=== PATIENT | female | born 1970 | race Caucasian/White ===

== ENCOUNTER 2024-11-20 11:04 | Outpatient (AMB) | payer MEDICAID, SELFPAY ==
--- OUTSIDE RECORDS SUMMARY | 2024-11-20 11:11 | XMS_ITS | Clinical Summary ---
Author Organization [facility] Address [address] [place] [address] Care Team Providers Care Surg Nurse Name Role Phone Jesusita Mcgarry Primary Care Provider Social History Tobacco Use Types Packs/Day Years Used Date Smoking Tobacco: Never Assessed Comments Unknown Sex and Gender Information Value Date Recorded Sex Assigned at Not on file Legal Sex Female 1:26 AM EST Gender Identity Not on file Sexual Orientation Not on file Plan of Treatment Not on file Care Teams Surg Nurse Relationship Specialty Start Date End Date Jesusita Mcgarry [address] [place] [address] [address] [address] PCP - General 03/01/14
--- OUTSIDE RECORDS SUMMARY | 2024-11-20 11:11 | XMS_ITS | Patient Health Record ---
Author Organization [facility] Address [address] [facility] 4TH [place] [address] Care Team Providers Care Lav Crewman Name Role Phone Anette Lopes Primary Care Provider Jeff Newman M.D, M.P.H, Tamara Unavailable Allergies No Known Allergies Reason For Referral No Information Medications Medication SIG (Take, Route, Fr equency, Duration) Notes Start Date End Date Status Zetia Active KlonoPIN 1 MG 1 tablet Orally Once a day Active Rexulti 1 MG 1 tablet Orally Once a day Active DULoxetine HCl Activ e Social History Tobacco Use: Social History Observation Description Date Details (start date - stop date) Light tobacco s moker NA - NA Smoking: Question Answer Notes Are you a : light tobacco smoker Alcohol Screen Question Answer Notes Did you have a drink containing alcohol in the p ast year? No Vital Signs Blood pressure diastolic 85 mm Hg 06/18/2024 Height 65 in 06/18/2024 Blood pressure systolic 130 mm Hg 06/18/2024 Weight 240 lbs 06/18/2024 BMI 39.93 kg/m2 06/18/2024 Encounters Encounter Location Date Provider Diagnosis [facility] [address] [facility] [address] [place] [address] 06/18/2024 Tamara Du Nasal congestion R09.81 and Acquired nasal septal defect J34.89 Assessments Encounter Date Diagnosis (ICD Code) Assessment Notes Treatment Notes Treatment Clinical Notes Section Notes 06/18/2024 Nasal congestion (ICD-10 - R09.81) unclear cause, patient has a widely patent nasal airway bilaterally without mucosal edema, turbiante hypertrophy or septal deviation. She does have a very posterior septal perforation which is likely iatrogenic but in its location, should not cause any symptoms. Empty nose syndrome is a possiblity but unlikely given that she does not appear to have had extensive surgery on the left side. I do not feel that repairing the septal perforation would be of benefit to patient. We discussed conservative strategies including nasal saline. She can f/u prn. 06/18/2024 Acquired nasal septal defect (ICD-10 - J34.89) Plan Of Treatment No Information Insurance Providers Payer Name Payer Address Payer Phone Subscriber Number Group Number Insured Name Patient Relationship to Insured Coverage Start Date Coverage End Date [facility] [address] [place] [id number] Frieda Dsouza Self - patient is the insured [facility] [address] [place] [address] [id number] Frieda Dsouza Self - patient is the insured Medical (General) History Medical History History ICD Code Patient Medical History Continued: High blood pressure,Sleep apnea cancer: Other Cancer, other: Bladder Surgical History: Removed tonsils or Amanda noids,Sinus surgery,Spine surgery
--- OUTSIDE RECORDS SUMMARY | 2024-11-20 11:13 | XMS_ITS | Clinical Summary ---
Author Organization [facility] Address [address] [facility] [address] [place] [address] Phone Care Team Providers Care Management Liaison Name Role Phone Anette Lopes AUTOMOBILE OR TRUCK RENTAL DISPATCHER Primary Care Provider [phone]- [phone] Allergies Active Allergy Reactions Criticality Noted Date Comments Fluorouracil-Adhesive Bandage 2022 Latex Rash Low 12/11/2022 Medications No known medications Active Problems No known active problems Immunizations Immunization Administration Dates Next Due COVID-19 (Pre-02/11) Moderna Vaccine, mRNA, PF 03/09/2021,08/13/2020,07/16/2020 Influenza Quadrivalent Preservative Free IM 01/20 Influenza, Unspecified Formulation 01/30/2022 Social History Tobacco Use Types Packs/Day Years Used Date Smoking Tobacco: Never Assessed Education Answer Date Recorded Are you interested in more education? Not on cesar e 08/18/2022 Are you concerned about learning? Not on file 08/18/2022 No 08/18/2022 No 08/18/2022 Digital Access Answer Date Recorded No 09/16/2022 No 09/16/2022 No 09/16/2022 Reliable internet access at home? Not on file 09/16/2022 Device with a working camera? Not on file Intimate Partner Violence Answer Date R ecorded Are you denied basic needs s uch as food, clothing, or medical care? No 12/11/2022 In the past 12 months have y ou been in a relationship with a person who hurts, threatens, or tries to control you? No 12/11/2022 Are you denied basic needs s uch as food, clothing, or medical care? No 12/11/2022 In the past 12 months have y ou been in a relationship with a person who hurts, threatens, or tries to control you? No 12/11/2022 Comments Unknown Sex and Gender Information Value Date Recorded Sex Assigned at Female 12/11/2022 9:32 AM EDT Legal Sex Female 5:29 PM EST Gender Identity Female 12/11/2022 9:32 AM EDT Sexual Orientation Choose not to disclose 2022 9:32 AM EDT Last Filed Vital Signs Vital Sign Reading Time Taken Comments Blood Pressure 122/73 12/11/2022 2:20 PM EDT Pulse 90 12/11/2022 2:20 PM EDT Temperature 36.9 C (98.4 F) 12/11/2022 2:20 PM EDT Respiratory Rate 18 12/11/2022 2:20 PM EDT Oxygen Saturation 100% 12/11/2022 2:20 PM EDT Inhaled Oxygen Concentration - - Weight 102.1 kg (225 lb) 12/11/2022 9:32 AM EDT Height 165.1 cm (5' 5 ) 12/11/2022 9:32 AM EDT Body Mass Index 37.44 12/11/2022 9:32 AM EDT Plan of Treatment Health Maintenance Due Date Last Done Comments LIPID PANEL 1970 DEPRESSION SCREENING 1982 SMOKING Hx and SMOKELESS TOBACCO SCREENING 1983 HEPATITIS C SCREENING 1988 HIV ONE-TIME SCREENING (18-65 YEARS) 1988 PAP SMEAR 1991 SCREENING FOR DIABETES 2005 MAMMOGRAM 2010 COLOGUARD 2015 COLONOSCOPY 2015 COLORECTAL CANCER SCREENING 2015 FIT TEST 2015 FOBT 2015 SIGMOIDOSCOPY 2015 VIRTUAL COLONOSCOPY 2015 PNEUMOCOCCAL VACCINES (50+ years) (1 of 1 - PCV) 2020 ZOSTER VACCINES (1 of 2) 2020 COVID-19 VACCINE ( - season) 2023 03/09/2021, 08/13/2020, 07/16/2020, Additional history exists Adult Td,Tdap Booster 11/17/2027 11/16/2017 HEPATITIS A VACCINES Aged Out No long er eligible based on patient's age to complete this topic HIB VACCINES Aged Out No longer eligi ble based on patient's age to complete this topic MENINGOCOCCAL VACCINES (ACWY) Aged Out No longer eligible based on patient's age to complete this topic MENINGOCOCCAL VACCINES (B) Aged Out N o longer eligible based on patient's age to complete this topic Medical Devices Not on file Insurance [facility] MEDICARE A [facility] EMPL[employer]YEES [place] [facility] [place] [facility] EMPL[facility]YEES FAMILY [facility] MEDICARE A [facility] EMPLOYEES FAMILY [facility] MEDICARE A [facility] EMPL[employer]ES [place] MED[place] A [place] MED[place] A [facility] EMPLOYEES FAMILY Advance Directives For more information, please contact: [phone] (9AM - 5PM [facility], Saturday-Saturday) Documents on File Type Date Recorded Patient Tailor Fitter Expl anation Advance Directive - Non Epic LMR 03/29/2006 12:00 AM Care Teams Management Liaison Relationship Specialty Start Date End Date Anette Lopes NP [address] [place] [address] PCP - General Nurse Practitioner 08/15/22 Additional Source Comments The information contained in this document represents components of the legal health record. It is not the complete legal health record.[facility]
[2024-11-20 11:36] VITALS: BP 121/78; PULSE 88; RESP 18; O2SAT 98; BMI 34.9
--- NOTE | 2024-11-20 11:36 | A.OFFVIS_ITS ---
Vital Signs 11/20/24 11:36 Height 5 ft 5 in Weight 210 lb BMI 34.9 BP 121/78 Blood Pressure Location Lt brachial Position Sitting Respiration 18 Pulse 88 Pulse Oximetry (%) 98 Oxygen Delivery Method Room Air Intake Visit Reasons: VERTEBROGENIC LOW BACK PAIN Writer Editor Required: No Allergies Opioids - Morphine Analogues Allergy (Unknown, Unverified 11/20/24 11:34) Unknown HPI HPI VERTEBROGENIC LOW BACK PAIN: Details: History of Present Illness The patient is a 54-year-old female presenting with management of chronic low back pain. The low back pain has been present for 15 years and radiates across her lower back. She underwent surgery at L4-5 in 2010, performed by Dr. Marion, but continues to experience chronic numbness in her toes. The patient has previously responded well to injections, although recent attempts have not been effective. A spinal cord stimulator was placed but did not provide significant improvement, and she experienced discomfort from the battery placement. Recent MRI findings revealed partial sacralization of L5 and modic changes underpinning vertebrogenic pain exacerbated by certain activities. Her pain has been refractory to conservative management, including epidural steroid injections, home exercise programs, and medications such as meloxicam and pregabalin. She was recommended an intrracept procedure at L3, L4, and L5, with an additional target at S1 due to vertebral degeneration but this could not be completed due to scheduling difficulties. During her second , the patient experienced pelvic instability, with her pubic bone splitting two inches, causing significant discomfort. Pain Description - Onset: 15 years ago - Quality: Radiates across lower back - Exacerbating factors: Certain activities - Previous interventions: Surgery at L4-5, spinal cord stimulator, CHACHA/facet injections - Current status: Refractory to conservative management Physical Exam - Appears afebrile. - Alert and oriented. - Mood and affect appropriate. - Follows and participates in conversation appropriately. - Respiratory effort is unlabored. 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 Social phobia PRANAY (obstructive sleep apnea) Hiatal hernia GERD (gastroesophageal reflux disease) Fibromyalgia Endometriosis BPV (benign positional vertigo) Benzodiazepine overdose Adrenal adenoma Anxiety Depression Memory loss Overweight Vertebrogenic low back pain Surgical History (Updated 11/20/24 @ 12:01 by Jaleesa Rodriguez) Hx of breast implants, bilateral History of tonsillectomy Physical Exam Vital Signs: Last Vital Signs Pulse 88 11/20/24 11:36 Resp 18 11/20/24 11:36 BP 121/78 11/20/24 11:36 Pulse Ox 98 11/20/24 11:36 Oxygen Delivery Method Room Air 11/20/24 11:36 BMI result Body Mass Index 34.9 Assessment & Plan Assessment & Plan (1) Vertebrogenic low back pain: Code(s): M54.51 - Vertebrogenic low back pain Category: Medical Plan Plan - Recommend Intracept/BVN ablation procedure at L3, L4, L5, and S1 due to vertebral degeneration and pain refractory to conservative management. - Consideration of facet joint degeneration and potential need for future interventions if pain persists post-procedure. - Monitor for any complications related to previous epidural injections and spinal procedures. Patient was informed and verbally consented to the use of an ambient scribe for clinic note documentation during this visit. Discussion Notes I discussed the BVNA procedure with the patient, explaining the rationale for targeting L3, L4, L5, and S1 due to vertebral degeneration and refractory pain. We reviewed the potential risks and benefits, including the possibility of addressing facet joint degeneration in the future if necessary. The patient was informed about the need to monitor for any complications related to previous spinal procedures. Patient Instructions - Follow up with surgical services asst to arrange the intraset procedure. - Monitor for any new or worsening symptoms and report them immediately. - Continue current pain management regimen until the procedure is completed. Coding Level of Care Code New Pt Level 4 (44216) Diagnoses Vertebrogenic low back pain M54.51
== END 2024-11-20 12:20 | disposition home or self-care (01) ==
LOC: HO.PMC 11:05
PROVIDERS: PCP Nurse Practitioner Adult Health; Visit Provider Internal Medicine
DX: M54.51 Vertebrogenic low back pain (principal)
CPT/HCPCS: 99204

== ENCOUNTER → 2024-11-20 11:04 | Outpatient (BNVA) | payer MEDICAID, SELFPAY | PROVIDERS: PCP Nurse Practitioner Adult Health; Visit Provider Internal Medicine | DX: M54.51 Vertebrogenic low back pain (principal); G89.29 Other chronic pain | CPT/HCPCS: 99202 ==

== ENCOUNTER 2025-01-06 10:08 | Day surgery (SDC) | payer OTHER, MEDICAID, SELFPAY ==
--- OUTSIDE RECORDS SUMMARY | 2024-12-03 13:14 | XMS_ITS | Clinical Summary ---
Author Organization [facility] Address [address] [place] [address] Care Team Providers Care Feather Duster Winder Name Role Phone Jesusita Mcgarry Primary Care Provider Social History Tobacco Use Types Packs/Day Years Used Date Smoking Tobacco: Never Assessed Comments Unknown Sex and Gender Information Value Date Recorded Sex Assigned at Not on file Legal Sex Female 1:26 AM EST Gender Identity Not on file Sexual Orientation Not on file Plan of Treatment Not on file Care Teams Feather Duster Winder Relationship Specialty Start Date End Date Jesusita Mcgarry [address] [place] [address] [address] [address] PCP - General 03/01/14
--- OUTSIDE RECORDS SUMMARY | 2024-12-03 13:14 | XMS_ITS | Clinical Summary ---
Author Organization [facility] Address [address] [facility] [address] [place] [address] Phone Care Team Providers Care Endband Sizer Name Role Phone Anette Lopes ESOL TEACHER Primary Care Provider [phone]- [phone] Allergies Active Allergy Reactions Criticality Noted Date [...] topic Medical Devices Not on file Insurance [facility] MEDICARE A [facility] EMPLOYEES [place] MEDIC[place] A [facility] [place] [facility] FAM[facility] MEDICARE A [facility] EM[employer]ES [place] MED[place] [facility] EMPLO[employer]ES FAMILY Advance Directives For more information, please contact: [phone] (9AM - 5PM [facility], Saturday-Saturday) Documents on File Type Date Recorded Patient Lead Sewage Plant Operator Expl anation Advance Directive - Non Epic LMR 03/29/2006 12:00 AM Care Teams Endband Sizer Relationship Specialty Start Date End Date Anette Lopes NP [address] [place] [address] PCP - General Nurse Practitioner 08/15/22 Additional Source Comments The information contained in this document represents components of the legal health record. It is not the complete legal health record.[facility]
--- OUTSIDE RECORDS SUMMARY | 2024-12-03 13:14 | XMS_ITS | Patient Health Record ---
Author Organization [facility] Address [address] [facility] 4TH [place] [address] Care Team Providers Care Bathhouse Keeper Name Role Phone Anette Lopes Primary Care [...] Diagnosis [facility] [address] [facility] [address] [place] [address] 06/18/2024 Tamara Du Nasal congestion R09.81 and [...] Insured Coverage Start Date Coverage End Date [facility] [address] [place] [phone] [id number] Frieda Dsouza Self - patient is the insured [facility] [address] [place] [address] [id number] Frieda Dsouza Self - patient is the insured Medical (General) History Medical History History ICD Code Patient Medical History Continued: High blood pressure,Sleep apnea cancer: Other Cancer, other: Bladder Surgical History: Removed tonsils or Amanda noids,Sinus surgery,Spine surgery
--- NOTE | 2024-12-22 10:45 | HO.ANESPROP2 ---
Documented by User: Shi Leach NP 12/29/24 10:41 HPI - Anesthesia Eval Consult details Narrative: 54yo F for L3,L4 L5 and S1 Basivertebral Nerve Ablation (Intracept RFA), 01/06/25 Anesthesia Pre-Procedure Meds Is the patient on any of the following meds?: GLP1/DPP4 PMFSH Active Problems Active Problems: All Active Problems Benzodiazepine overdose (Acute) Social phobia (Acute) PRANAY (obstructive sleep apnea) (Acute) Hiatal hernia (Acute) GERD (gastroesophageal reflux disease) (Acute) Fibromyalgia (Acute) Endometriosis (Acute) BPV (benign positional vertigo) (Acute) Adrenal adenoma (Acute) Anxiety (Acute) Depression (Acute) Memory loss (Acute) Overweight (Acute) Vertebrogenic low back pain (Acute) Past Medical History Medical History (Updated 11/20/24 @ 12:01 by Jaleesa Rodriguez) FH: cholecystectomy Spinal cord stimulator status 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 Social phobia PRANAY (obstructive sleep apnea) Hiatal hernia GERD (gastroesophageal reflux disease) Fibromyalgia Endometriosis BPV (benign positional vertigo) Benzodiazepine overdose Adrenal adenoma Anxiety Depression Memory loss Overweight Vertebrogenic low back pain Surgical History Surgical History (Updated 11/20/24 @ 12:01 by Jaleesa Rodriguez) Hx of breast implants, bilateral History of tonsillectomy Social History Social History Are you a primary ostomy care nurse to a significant other at home: No Do you presently have visiting nurse or other home services: No Patient Tobacco Use Status: Current everyday Tobacco user Tobacco use type: Smokeless Tobacco Use of substances other than those prescribed or required for medical reasons: No Have you been hit, kicked, punched, or otherwise hurt by someone within the past year? If so, by whom?: No Are you DNR?: No Advance Directives: No Advance Directives Information Provided: Yes Patient : No : No Poor oral hygiene: No Meds Allergies Allergy/AdvReac Type Severity Reaction Status Date / Time Opioids - Morphine Analogues Allergy Unknown Unknown Verified 01/06/25 10:54 Home Medications ?Medication ?Instructions ?Recorded ?Confirmed ?Last Taken ?Type brexpiprazole 1 mg tablet (Rexulti) 1 mg PO DAILY 11/20/24 01/06/25 Unknown History clonazepam 1 mg tablet (Klonopin) 1 mg PO BEDTIME 11/20/24 01/06/25 Unknown History duloxetine 30 mg capsule,delayed 90 mg PO DAILY 11/20/24 01/06/25 Unknown History release (Cymbalta) semaglutide (weight loss) 2.4 mg subcut 12/22/24 12/22/24 12/24/24 History mg/0.75 mL subcutaneous pen injector (Wegovy) Exam Pertinent Lab Results Pertinent Lab Results: Assessment and Plan Assessment Anesthesia Assessment: Chart Reviewed Documented by User: Lakeshia Ferguson MD 01/06/25 11:44 PMFSH Past Medical History Medical History (Updated 11/20/24 @ 12:01 by Jaleesa Rodriguez) FH: cholecystectomy Spinal cord stimulator status 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 Social phobia PRANAY (obstructive sleep apnea) Hiatal hernia GERD (gastroesophageal reflux disease) Fibromyalgia Endometriosis BPV (benign positional vertigo) Benzodiazepine overdose Adrenal adenoma Anxiety Depression Memory loss Overweight Vertebrogenic low back pain Family History Family history of problems with anesthesia: No Surgical History Surgical History (Updated 11/20/24 @ 12:01 by Jaleesa Rodriguez) Hx of breast implants, bilateral History of tonsillectomy History of Problems with Anesthesia: No Social History Social History Are you a primary ostomy care nurse to a significant other at home: No Do you presently have visiting nurse or other home services: No Patient Tobacco Use Status: Current everyday Tobacco user Tobacco use type: Smokeless Tobacco Use of substances other than those prescribed or required for medical reasons: No Have you been hit, kicked, punched, or otherwise hurt by someone within the past year? If so, by whom?: No Are you DNR?: No Advance Directives: No Advance Directives Information Provided: Yes Patient : No : No Poor oral hygiene: No Meds Allergies Allergy/AdvReac Type Severity Reaction Status Date / Time Opioids - Morphine Analogues Allergy Unknown Unknown Verified 01/06/25 10:54 Home Medications ?Medication ?Instructions ?Recorded ?Confirmed ?Last Taken ?Type brexpiprazole 1 mg tablet (Rexulti) 1 mg PO DAILY 11/20/24 01/06/25 Unknown History clonazepam 1 mg tablet (Klonopin) 1 mg PO BEDTIME 11/20/24 01/06/25 Unknown History duloxetine 30 mg capsule,delayed 90 mg PO DAILY 11/20/24 01/06/25 Unknown History release (Cymbalta) semaglutide (weight loss) 2.4 mg subcut 12/22/24 12/22/24 12/24/24 History mg/0.75 mL subcutaneous pen injector (Wegovy) Exam Airway Mallampati Class: II (perm bridge lateral right) TM Dist: >3cm Neck ROM: Full Heart: rrr Lungs: cta Assessment and Plan Assessment Anesthesia Assessment: Anesthesia Plan Discussed Final Anesthetic Review Family History of Problems with Anesthesia: No History of Problems with Anesthesia: No NPO: Yes ASA Class: III Final Preanesthetic Review: No Changes in Pt Med Stat, Meds/Allgs Chart Reviewed and Consent Obtained/Reviewed Patient Risk: Low Procedure Risk: Intermediate Anesthetic Plan Anesthetic Plan: MAC: Disposition: Standard PACU
[2025-01-04 08:45] VITALS: BMI 34.9
[2025-01-06] VITALS (15 sets, daily range): BP systolic 128–180; BP diastolic 59–89; PULSE 82–102; RESP 14–19; TEMP 36.7–36.8; O2SAT 93–97; BMI 40.4
--- NOTE | ~2025-01-06 | FL_ITS ---
EXAMINATION: FL GUIDANCE ONLY HISTORY: L3-S1 RFA INTRACEPT COMPARISON: None available. TECHNIQUE: Fluoroscopy time: 2 minutes, 7.3 seconds. Cumulative Dose: 169.08 mGy. DAP: 25.703 mGym2 Images: 7. FINDINGS: Endoscopic spot films of the lumbar spine demonstrate electrodes in place in the sacrum and in the L4 and L3 vertebral bodies. FL/FL guidance in OR IMPRESSION: Fluoroscopy during procedure. Please see procedure report for additional information. Electronically signed by: Carlos Manuel Felix MD 01/06/2025 02:39 PM EDT
[2025-01-06] MEDS: Lactated Ringers 1,000 ML 100 ML IVCONT (11:28)
--- NOTE | 2025-01-06 12:08 | MHC.SHP ---
Pre-Procedural Eval Section A - 24 Hr Update-Section A only Date of Service: 01/06/25 The patient is an INPATIENT: No Changes since office visit: Yes Patient answered all questions The patient has been examined within 24 hours of the surgical procedure. The History & Physical has been completed within 30 days and I have reviewed it.: No Section B - Complete if H&P > 30 days Chief Complaint: Vertebrogenic low back pain Relevant Family History (Specify if Yes): No Relevant Social History: None Present Medications: see Short Stay Collaborative assessment Medical History: No relevant PMH History of Previous Operations: No relevant previous surgery Allergies: Allergies Allergy/AdvReac Type Severity Reaction Status Date / Time Opioids - Morphine Analogues Allergy Unknown Unknown Verified 01/06/25 10:54 Review of Systems Sugical H&P ROS: Negative: Constitution, Cardiovascular and Respiratory Exam Surgical H&P Exam: Normal: HEENT, Normal: Heart and Normal: Lungs Plan Diagnosis/Plan: Unchanged I have reviewed the history and physical and performed a pertinent physical examination on my patient. No changes have occurred unless specified. Time Spent With Patient Time: Total time managing care of this patient today ____ minutes.
[2025-01-06 12:56] LABS: MRSA Nasal PCR NEGATIVE (Negative); SA Nasal PCR POSITIVE (Negative)
--- NOTE | 2025-01-06 14:04 | PM.OP ---
Brief Operative Note Date of Service: 01/06/25 Pre-op diagnosis: Vertebrogenic low back pain Post-op diagnosis: same Procedure: L3, L4, L5, S1 basivertebral nerve ablation (Intracept) procedure Surgeon: Ángel Benitez MD Anesthesia: GETA Was an Assistant Manager Quality Management used for this Procedure?: No Estimated blood loss (mL): 50 Pathology: none sent Condition: stable Disposition: PACU
--- NOTE | 2025-01-06 14:05 | P.OP_ITS ---
Operative Note Operative Note Date of Service: 01/06/25 Narrative: Preoperative diagnosis: Vertebrogenic low back pain Postoperative diagnosis: Same Procedure: Basivertebral nerve (BVN) ablation ? Intracept Procedure L3, L4, L5, S1 Procedure Time Out: Patient ID confirmed, correct procedure to be performed, correct site and/or side for procedure as per marked location and correct medication(s), including antibiotic to be used for the procedure. Description of Procedure: After receiving anesthesia in the supine position, the patient was placed prone on the operating room table and all pressure points w ere appropriately padded. The back was sterilely prepped and draped. The C-arm was sterilely draped and moved into position to visualize the S1 vertebral body in the AP and lateral plane. The C-arm was rotated to a Perkins view to square off the superior endplate at S1. The C-arm was then rotated to the left approximately 15-20 degrees for an approach to the left S1 pedicle. The skin entry point was identified and infiltrated with 1% lidocaine using a 25-gauge 1- 1/2 inch needle. A 22-gauge 5-inch spinal needle was used to anesthetize the track to the pedicle and periosteum and confirm the introducer cannula trajectory. A skin incision was made with 15 scalpel blade. The introducer cannula with bevel tip was then introduced through the skin, subcutaneous tissue and paraspinal muscle until bony contact was made. The position was checked in the AP and lateral plane. Using a mallet, the trocar was then advanced thru the pedicle to the posterior aspect of the vertebral body using a combination of AP and lateral views to ensure appropriate traversing of the pedicle and no breaching of the pedicle medially. Once the trocar was in the posterior aspect of the S1 vertebral body, the trocar was removed from the cannula and the curved cannula assembly with the nitinol J-stylet was inserted. The spin wheel was rotated counterclockwise permitting excursion of the J-stylet. The curved natasha delroy assembly was then advanced using a mallet in 1-2 mm increments. The J-stylet was observed to traverse the vertebral body in the AP and lateral views. The J- stylet was removed and replaced with the straight stylet to reach the BVN target. Target was reached when the tip of the stylet was 50% anterior of the posterior wall of the S1 in the lateral view (midway between the superior and inferior endplates) and it crossed the midline of the S1 spinous process in the AP view. The stylet was then removed. The bipolar radiofrequency (RF) probe was connected to the generator and then inserted into the introducer cannula in its ablation position. The spin wheel was rotated clockwise to retract the PEEK sleeve to expose the proximal electrode on the radiofrequency probe. The BVN was then ablated using [employer]?s targeted RFG algorithm. While the ablation was occurring at S1, the C-arm was moved to visualize the target at the superolateral aspect of the L5 vertebral body. The C-arm was rotat ed to square off the superior endplate at L5 and rotated right to obtain an oblique view. The superolateral right L5 pedicle was identified for access. The same process was utilized to place the tip of the cannular 50% anterior of the posterior wall of the L5 in the lateral view (midway between the superior and inferior endplates) and it crossed the midline of the L5 spinous process in the AP view. The stylet was then removed. The bipolar radiofrequency (RF) probe was removed from the previous vertebral body, the tip cleaned and was inserted into the introducer cannula in its ablation position. The spin wheel was rotated clockwise to retract the PEEK sleeve to expose the proximal electrode on the radiofrequency probe. The BVN was then ablated using [employer]?s targeted RFG algorithm. While the ablation was occurring at L5, the C-arm was moved to visualize the target at the superolateral aspect of the L4 vertebral body using the approach similar to the L5 vertebral body. The C-arm was rotated to square off the superior endplate at L4 and rotated approximately to the left to obtain an oblique view. The superolateral left L4 pedicle was identified, and the skin entry point identified. Same steps were followed as for L5. Target was reached when the tip of the stylet was 50% anterior of the posterior wall of the L4 in the lateral view (midway between the superior and inferior endplates) and it crossed the midline of the L4 spinous process in the AP view. The stylet was then removed. The bipolar radiofrequency (RF) probe was removed from the previous vertebral body, the tip cleaned and was inserted into the introducer cannula in its ablation position. The spin wheel was rotated clockwise to retract the PEEK sleeve to expose the proximal electrode on the radiofrequency probe. The BVN was then ablated using [employer]?s targeted RFG algorithm. While the ablation was occurring at L4, the C-arm was moved to visualize the target at the superolateral aspect of the L3 vertebral body. The C-arm was rotated to square off the superior endplate at L3 and rotated right to obtain an oblique view. The superolateral right L3 pedicle was identified for access. The same process was utilized to place the tip of the cannular 50% anterior of the posterior wall of the L3 in the lateral view (midway between the superior and inferior endplates) and it crossed the midline of the L5 spinous process in the AP view. The stylet was then removed. The bipolar radiofrequency (RF) probe was removed from the previous vertebral body, the tip cleaned and was inserted into the introducer cannula in its ablation position. The spin wheel was rotated clockwise to retract the PEEK sleeve to expose the proximal electrode on the radiofrequency probe. The BVN was then ablated using [employer]?s targeted RFG algorithm. With all ablations completed, the instruments were removed from the vertebral bodies. The surgical wounds were closed with 2-0 silk sutures and a sterile dressing was applied. The patient was returned to the supine position and the anesthesia reversed. The patient tolerated the procedure well and was brought to the recovery room. The patient was provided post-op and follow up instructions. Complications: None Estimate Blood Loss: 50 mL
[2025-01-06] MEDS: oxyCODONE HCl Immed Release 5 MG TABLET PO (15:15)
== END 2025-01-06 16:50 | disposition home or self-care (01) ==
PROVIDERS: Registered Nurse Emergency; PCP Nurse Practitioner Adult Health; Visit Provider Internal Medicine
PROC: (CPT 64628; principal; 2025-01-06 12:00)
DX: M54.51 Vertebrogenic low back pain (principal); G89.29 Other chronic pain; Q76.49 Other congenital malformations of spine, not associated with scoliosis; R20.0 Anesthesia of skin; Z96.82 Presence of neurostimulator; M79.7 Fibromyalgia; G47.33 Obstructive sleep apnea (adult) (pediatric); Q28.2 Arteriovenous malformation of cerebral vessels; H81.10 Benign paroxysmal vertigo, unspecified ear; R41.3 Other amnesia; F32.A Depression, unspecified; F41.9 Anxiety disorder, unspecified; E66.3 Overweight; Z68.34 Body mass index [BMI] 34.0-34.9, adult; Z98.82 Breast implant status; Z79.85 Long-term (current) use of injectable non-insulin antidiabetic drugs; Z79.899 Other long term (current) drug therapy; Z88.5 Allergy status to narcotic agent; F17.220 Nicotine dependence, chewing tobacco, uncomplicated
CPT/HCPCS: 64628; 64629 ×2; 87640; 87641; C1889; J0690; J1100; J2003; J2250; J2405; J2704; J3010

== ENCOUNTER → 2025-01-06 10:08 | Outpatient (BNV) | payer OTHER, MEDICAID, SELFPAY | PROVIDERS: PCP Nurse Practitioner Adult Health; Visit Provider Internal Medicine | DX: M54.51 Vertebrogenic low back pain (principal) | CPT/HCPCS: 64628; 64629 ==

== ENCOUNTER 2025-01-11 09:33 | Outpatient (AMB) | payer OTHER, MEDICAID, SELFPAY ==
--- NOTE | 2025-01-11 09:39 | MHC.OFFVIS ---
Vital Signs 01/11/25 09:40 Height 5 ft 5 in Weight 245 lb BMI 40.8 BP 126/88 Blood Pressure Location Lt brachial Position Sitting Respiration 16 Pulse 84 Pulse Source Pulse Oximeter Pulse Oximetry (%) 98 Oxygen Delivery Method Room Air Intake Visit Reasons: pain post intracept Construction Field Engineer Required: No Allergies Opioids - Morphine Analogues Allergy (Mild, Verified 01/11/25 09:41) Abdominal Pain Medication List - Last Reconciled 01/11/25 by Riya Pearl LPN brexpiprazole (Rexulti) 1 mg PO DAILY clonazepam (Klonopin) 1 mg PO BEDTIME duloxetine (Cymbalta) 90 mg PO DAILY semaglutide (weight loss) (Wegovy) mg subcut tramadol 50 mg PO BID PRN HPI HPI pain post intracept: Details: History of Present Illness The patient is a 54-year-old female presenting for a follow-up after basivertebral nerve ablation at L3 through S1. Since the procedure, she reports new right-sided radicular sciatica type symptoms extending into the right buttock, thigh, and calf. She has been taking tramadol, which was mildly helpful, but she has run out of it. The patient has not been taking gabapentin and reports that most of her laxatives have not been helpful. Her usual back pain persists without significant change, and she experiences more pain when sitting. The incision sites are clean and dry, with no tenderness reported. Pain Description - Onset: New right-sided radicular sciatica type symptoms post-procedure - Quality: Sciatica type symptoms - Location: Right buttock, thigh, and calf - Exacerbating factors: Sitting increases pain - Relieving factors: Tramadol was mildly helpful Physical Exam - Integumentary: Incision sites clean and dry - Musculoskeletal: Tenderness in the right buttock, thigh, and calf Pain Management - Affect: Pain impacts daily activities, especially when sitting - Analgesia: Tramadol was mildly helpful; gabapentin prescribed - Adverse Effects: No side effects reported from gabapentin - Activities of Daily Living: Pain increases with sitting - Aberrant Drug Related Behaviors: None reported [facility] Medical History (Updated 11/20/24 @ 12:01 by Jaleesa Rodriguez) FH: cholecystectomy Spinal cord stimulator status 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 Social phobia PRANAY (obstructive sleep apnea) Hiatal hernia GERD (gastroesophageal reflux disease) Fibromyalgia Endometriosis BPV (benign positional vertigo) Benzodiazepine overdose Adrenal adenoma Anxiety Depression Memory loss Overweight Vertebrogenic low back pain Surgical History (Updated 11/20/24 @ 12:01 by Jaleesa Rodriguez) Hx of breast implants, bilateral History of tonsillectomy Social History Are you a primary respiratory care specialist to a significant other at home: No Do you presently have visiting nurse or other home services: No Patient Tobacco Use Status: Current everyday Tobacco user Tobacco use type: Smokeless Tobacco Physical Exam Vital Signs: Last Vital Signs Pulse 84 01/11/25 09:40 Resp 16 01/11/25 09:40 BP 126/88 01/11/25 09:40 Pulse Ox 98 01/11/25 09:40 Oxygen Delivery Method Room Air 01/11/25 09:40 BMI result Body Mass Index 40.8 Assessment & Plan Assessment & Plan (1) Vertebrogenic low back pain: Code(s): M54.51 - Vertebrogenic low back pain Category: Medical Plan Plan Patient was informed and verbally consented to the use of an ambient scribe for clinic note documentation during this visit. 1. Radicular Sciatica Symptoms - Gabapentin prescribed to manage symptoms, starting at night to monitor for drowsiness. - If symptoms persist beyond 2-4 weeks, consider right L5 transforaminal injection for right L5 nerve root irritation. - Exercises recommended to alleviate symptoms. 2. Post-Procedural Pain - Monitor pain status; tramadol may be extended if gabapentin is insufficient. - Follow-up visit scheduled for wound check and reassessment. Discussion Notes I discussed with the patient that the new leg pain could be a transient type of sciatica due to nerve root irritation from the procedure. I explained that this should settle down in a couple of weeks, and if not, we could consider a cortisone injection. We also talked about the use of gabapentin and exercises to manage symptoms, and the possibility of extending tramadol if needed. Patient Instructions - Start taking gabapentin at night and monitor for drowsiness. - Perform recommended exercises at home to help alleviate symptoms. - Follow up in 2-4 weeks if symptoms persist for possible cortisone injection. - Attend the follow-up visit for wound check and reassessment. Medications: New gabapentin 600 mg PO BID 60 tabs 0RF Coding Level of Care Code Est Pt Level 4 (51077) Diagnoses Vertebrogenic low back pain M54.51
[2025-01-11 09:40] VITALS: BP 126/88; PULSE 84; RESP 16; O2SAT 98; BMI 40.8
--- OUTSIDE RECORDS SUMMARY | 2025-01-11 11:15 | XMS_ITS | Clinical Summary ---
Author Organization [facility] Address [address] [facility] [address] [place] [address] Phone Care Team Providers Care Director Of Operations For Therapy Name Role Phone Anette Lopes PRESENTATION SPECIALIST Primary Care Provider [phone]- [phone] Allergies Active Allergy Reactions Criticality Noted Date [...] 2020 ZOSTER VACCINES (1 of 2) 2020 INFLUENZA VACCINE (#1) 2024 , 01/30/2022, 04/10/2018, Additional history exists COVID-19 VACCINE (2024- season) 2024 03/09/2021, 08/13/2020, 07/16/2020, Additional history exists Adult [...] topic Medical Devices Not on file Insurance [facility] MEDICARE A [employer] [facility] [facility] [facility] EMPLOYEES FAMILY [facility] Address: [employer] CLAIMS [address] [place] [address] [place] [employer] [facility] [place] [place] [id number] MEDICARE A [place] [employer] [place] A [facility] [facility] [facility] [employer] [facility] Address[facility] [address] [place] [address] [facility] MEDICARE A [facility] [facility] [facility] [facility] [employer] [facility] A [facility] EMPLOYEES FAMILY [facility] Address: [facility] CLAIMS [address] [place] [address] Advance Directives For more information, please contact: [phone] (9AM - 5PM [facility], Saturday-Saturday) Documents on File Type Date Recorded Patient Distributor Publications Expl anation Advance Directive - Non Epic LMR 03/29/2006 12:00 AM Care Teams Director Of Operations For Therapy Relationship Specialty Start Date End Date Anette Lopes NP [address] [place] [address] PCP - General Nurse Practitioner 08/15/22 Additional Source Comments The information contained in this document represents components of the legal health record. It is not the complete legal health record.[facility]
--- OUTSIDE RECORDS SUMMARY | 2025-01-11 11:15 | XMS_ITS | Patient Health Record ---
Author Organization [facility] Address [address] [facility] [address] [place] [address] Care Team Providers Care Sales Operations Analyst Name Role Phone Anette Lopes Primary Care [...] Diagnosis [facility] [address] [facility] [address] [place] [address] 06/18/2024 Tamara Du Nasal congestion R09.81 and [...] Insured Coverage Start Date Coverage End Date [facility] [address] [place] [phone] [id number] Frieda Dsouza Self - patient is the insured [facility] [address] [place] [phone] [id number] Frieda Dsouza Self - patient is the insured Medical (General) History Medical History History ICD Code Patient Medical History Continued: High blood pressure,Sleep apnea cancer: Other Cancer, other: Bladder Surgical History: Removed tonsils or Amanda noids,Sinus surgery,Spine surgery
== END 2025-01-11 10:30 | disposition home or self-care (01) ==
LOC: HO.PMC 09:33
PROVIDERS: PCP Nurse Practitioner Adult Health; Visit Provider Internal Medicine
DX: M54.51 Vertebrogenic low back pain (principal)
CPT/HCPCS: 99024

== ENCOUNTER 2025-03-11 06:26 | Outpatient (REF) | payer OTHER, MEDICAID, SELFPAY ==
--- OUTSIDE RECORDS SUMMARY | 2025-03-08 15:30 | XMS_ITS | Continuity of Care Document ---
Author Organization [facility] Address [address] [place] [address]- Care Team Providers Care Box Sealing Machine Operator Name Role Phone Moses DENNIS, Anette Fernandes Primary Care Physician [phone] Encounter [facility] NBR [id number] Date(s): 03/08/25 - 03/08/[address] [address]- Discharge Disposition: A-D/C Home Attending Physician: Deng Estrella DO Admitting Physician: Deng Estrella DO Referring Physician: Not on Staff, Referring MD Encounter Type: Disch ES Allergies, Adverse Reactions, Alerts Substance Criticality Severity Reaction Reaction Severity Status morphine Unable to assess criticality Persistent Severe Active Adhesive Bandage Act yang Latex Rash Active Functional Status Functional Status Assessment Assessment Assessment Component Result Effecti ve Date Disability status [CUBS] I'm Thriving - no identified disability 03/08/25 Are you deaf, or do you have serious difficulty hearing No 03/08/25 Are you blind, or do you have serious difficulty seeing, even when wearing glasses No 03/08/25 Because of a physica l, mental, or emotional condition, do you have serious difficulty concentrating, remembering, or making decisions No 03/08/25 Do you have serious difficulty walking or climbing stairs No 03/08/25 Do you have difficul ty dressing or bathing No 03/08/25 Because of a physica l, mental, or emotional condition, do you have difficulty doing errands alone such as visiting a physician's office or shopping No 03/08/25 Difficulty communica ting in usual language No 03/08/25 Difficulty Reading O r Writing No 03/08/25 Do you need any aung tional assistance or accommodations during your visit No 03/08/25 Immunizations Given and Recorded Vaccine Date Status Refusal Reason influenza virus vaccine, inactivated 12/28/23 Jonh rded influenza virus vaccine, inactivated 02/05/23 John rded influenza virus vaccine, inactivated 01/30/22 John rded influenza virus vaccine, inactivated 02/22/12 John rded SARS-CoV-2 (COVID-19) mRNA-1273 vaccine 03/09/21 R ecorded SARS-CoV-2 (COVID-19) mRNA-1273 vaccine 08/13/20 R ecorded SARS-CoV-2 (COVID-19) mRNA-1273 vaccine 07/16/20 R ecorded Influenza Virus Vaccine (oldterm) 1 04/10/18 Given tetanus/diphtheria/pertussis, acel(Tdap) 11/16/17 Given 1Admin Note: declined Medications aluminum hydroxide/magnesium hydroxide/simethicone 200 mg-200 mg-20 mg/5 mL oral suspension 10 mL, By Mouth, 4 times a day, PRN for control of stomach acid, # 400 mL, 0 Refills, Maintenance, 03/02/25 6:22:00 PM EST, Suspension, [facility], Partial fill upon patient request if the prescription is for a schedule II opioid drug., 10 mL By Mouth 4 times a day,PRN:for control of stomach acid, 165, cm, 03/02/25 16:03:00 EST, Height, 111, kg, 03/02/25 16:03:00 EST, Dry Weight Start Date: 03/02/25 Status: Ordered Medication Dispense Status: Completed Quantity: 400.0 Unit: mL Total Allowed Fills: 1 Fills Dispensed: 0 clonazePAM 1 mg oral tablet 1 tablet = 1 mg, By Mouth, Daily at bedtime, Extra 15 tablet a month daily as needed for anxiety, #135 tablet, 1 Refills, Maintenance, 11/17/24 9:00:00 AM EDT, [facility], Partial fill upon patient request if the prescription is for a schedule II opioid drug., 165, cm, 08/18/24 14:52:00 EDT, Height, 109, kg, 06/01/24 15:57:00 EST, Dry Weight Start Date: 11/17/24 Stop Date: 05/16/25 Status: Ordered Medication Dispense Status: Completed Quantity: 135.0 Unit: tablet Total Allowed Fills: 2 Fills Dispensed: 0 CPAP Machine See Instructions, # 1 each, Refills 12, Tot. Refills 12, Maintenance, DX:G47.33 PAP Supplies, mask fit to pt pref., headgear/chinstrap,climate line tubing, heated humidifer with filters and water chamber,etc. refill all supplies needed 99 MOS send to [facility], 11/09/21 8:42:00 AM EDT, Supply Start Date: 11/09/21 Status: Ordered Medication Dispense Status: Completed Quantity: 1.0 Unit: each Total Allowed Fills: 13 Fills Dispensed: 0 Diflucan 150 mg oral tablet 1 tablet = 150 mg, By Mouth, Once, # 1 tablet, 1 Refills, Soft Stop, 01/29/25 4:29:00 PM EDT, Tablet, [facility], Partial fill upon patient request if the prescription is for a schedule II opioid drug., 165, cm, 01/25/25 16:31:00 EDT, Height, 109, kg, 06/01/24 15:57:00 EST, Dry Weight Start Date: 01/29/25 Status: Ordered Medication Dispense Status: Completed Quantity: 1.0 Unit: tablet Total Allowed Fills: 2 Fills Dispensed: 0 doxepin 10 mg oral capsule 1 capsule = 10 mg, By Mouth, Daily at bedtime, # 30 capsule, 1 Refills, Maintenance, 01/19/25 3:43:00 PM EDT, [facility], Partial fill upon patient request if the prescription is for a schedule II opioid drug., 165, cm, 10/20/24 16:47:00 EDT, Height, 109, kg, 06/01/24 15:57:00 EST, Dry Weight Start Date: 01/19/25 Status: Ordered Medication Dispense Status: Completed Quantity: 30.0 Unit: capsule Total Allowed Fills: 2 Fills Dispensed: 0 duloxetine 30 mg oral enteric coated capsule 1 capsule = 30 mg, By Mouth, Daily, capsule, 0 Refills, Maintenance, 08/18/24 3:06:00 PM EDT, Partial fill upon patient request if the prescription is for a schedule II opioid drug. Start Date: 08/18/24 Status: Ordered Medication Dispense Status: Completed Total Allowed Fills: 1 Fills Dispensed: 0 duloxetine 60 mg oral enteric coated capsule 1 capsule = 60 mg, By Mouth, Daily, for 90 days, # 90 capsule, 1 Refills, Hard Stop 02/10/26 9:01:00 AM EDT, 08/14/25 9:01:00 AM EDT, EC Capsule, [facility], disregard last script, 165, cm, 10/20/24 16:47:00 EDT, Height, 109, kg, 06/01/24 15:57:00 EST, Dry Weight Start Date: 08/14/25 Stop Date: 02/10/26 Status: Ordered Medication Dispense Status: Completed Quantity: 90.0 Unit: capsule Total Allowed Fills: 2 Fills Dispensed: 0 duloxetine 60 mg oral enteric coated capsule 1 capsule = 60 mg, By Mouth, Daily, for 90 days, # 90 capsule, 1 Refills, Hard Stop 08/14/25 9:01:00AM EDT, 02/15/25 9:01:00 AM EDT, EC Capsule, [facility], disregard last script, 165, cm, 06/01/24 15:57:00 EST, Height, 109, kg, 06/01/24 15:57:00 EST, Dry Weight Start Date: 02/15/25 Stop Date: 08/14/25 Status: Ordered Medication Dispense Status: Completed Quantity: 90.0 Unit: capsule Total Allowed Fills: 2 Fills Dispensed: 0 famotidine 40 mg oral tablet 1 tablet = 40 mg, By Mouth, Daily at bedtime, # 30 tablet, 0 Refills, Maintenance, 03/02/25 6:22:00PM EST, Tablet, [facility], Partial fill upon patient request if the prescription is for aschedule II opioid drug., 165, cm, 03/02/25 16:03:00 EST, Height, 111, kg, 03/02/25 16:03:00 EST, Dry Weight Start Date: 03/02/25 Stop Date: 04/01/25 Status: Ordered Medication Dispense Status: Completed Quantity: 30.0 Unit: tablet Total Allowed Fills: 1 Fills Dispensed: 0 meloxicam 15 mg oral tablet 1 tablet = 15 mg, By Mouth, Daily, 0 Refills, Maintenance, 11/07/22 6:18:00 PM EDT, Partial fill upon patient request if the prescription is for a schedule II opioid drug. Start Date: 11/07/22 Status: Ordered Medication Dispense Status: Completed Total Allowed Fills: 1 Fills Dispensed: 0 ondansetron 4 mg oral tablet, disintegrating 1 tablet = 4 mg, By Mouth, Every 8 hours, PRN as needed for nausea/vomiting, # 12 tablet, 0 Refills, Maintenance, 03/08/25 3:03:00 PM EST, DIS Tablet, [facility], Partial fill upon patient request if the prescription is for a schedule II opioid drug., 165, cm, 03/08/25 13:13:00 EST, Height, 112.1, kg, 03/08/25 13:13:00 EST, Dry Weight Start Date: 03/08/25 Status: Ordered Medication Dispense Status: Completed Quantity: 12.0 Unit: tablet Total Allowed Fills: 1 Fills Dispensed: 0 ondansetron 4 mg oral tablet, disintegrating 1 tablet = 4 mg, By Mouth, Every 8 hours, PRN Nausea & Vomiting, # 9 tablet, 0 Refills, Maintenance, 05/29/24 6:48:00 PM EST, Tablet, [facility], Partial fill upon patient request if the prescription is for a schedule II opioid drug., 165, cm, 05/29/24 16:11:00 EST, Height, 109, kg, 05/29/24 16:11:00 EST, Dry Weight Start Date: 05/29/24 Stop Date: 06/01/24 Status: Ordered Medication Dispense Status: Completed Quantity: 9.0 Unit: tablet Total Allowed Fills: 1 Fills Dispensed: 0 pantoprazole 20 mg oral delayed release tablet 1 tablet = 20 mg, By Mouth, Daily, # 30 tablet, 0 Refills, Maintenance, 03/02/25 6:22:00 PM EST, CRTablet, 165, cm, 03/02/25 16:03:00 EST, Height, 111, kg, 03/02/25 16:03:00 EST, Dry Weight Start Date: 03/02/25 Status: Ordered Medication Dispense Status: Completed Quantity: 30.0 Unit: tablet Total Allowed Fills: 1 Fills Dispensed: 0 Rexulti 0.25 mg oral tablet 1 tablet = 0.25 mg, By Mouth, Daily, 0 Refills, Maintenance, 01/25/25 4:35:00 PM EDT, Partial fill upon patient request if the prescription is for a schedule II opioid drug. Start Date: 01/25/25 Status: Ordered Medication Dispense Status: Completed Total Allowed Fills: 1 Fills Dispensed: 0 semaglutide 2.4 mg/0.75 mL (2.4 mg dose) subcutaneous solution = 2.4 mg, Subcutaneous Injection, Every week, in the abdomen, thigh, or upper arm, # 3 mL, 2 Refills, Maintenance, 02/08/25 10:53:00 AM EDT, Solution, [facility], Partial fill upon patient request if the prescription is for a schedule II opioid drug., 165, cm, 01/25/25 16:31:00 EDT, Height, 109, kg, 06/01/24 15:57:00 EST, Dry Weight Start Date: 02/08/25 Status: Ordered Medication Dispense Status: Completed Quantity: 3.0 Unit: mL Total Allowed Fills: 3 Fills Dispensed: 0 Vitamin D3 1000 intl units oral tablet 1 tablet = 25 mcg, By Mouth, Daily, # 90 tablet, 3 Refills, Maintenance, 08/18/24 10:01:00 PM EDT, [facility], Partial fill upon patient request if the prescription is for a schedule II opioid drug., 165, cm, 08/18/24 14:52:00 EDT, Height, 109, kg, 06/01/24 15:57:00 EST, Dry Weight Start Date: 08/18/24 Status: Ordered Medication Dispense Status: Completed Quantity: 90.0 Unit: tablet Total Allowed Fills: 4 Fills Dispensed: 0 Indications: Vitamin D deficiency, unspecified; Zetia 10 mg oral tablet 1 tablet = 10 mg, By Mouth, Daily, OV 07-28-24, # 90 tablet, 1 Refills, Maintenance, 06/18/24 11:20:00AM EST, Tablet, [facility], Partial fill upon patient request if the prescription is for aschedule II opioid drug. Rx sent to diff pharmacy, 165, cm, 06/01/24 15:57:00 EST, Height, 109, kg,06/01/24 15:57:00 EST, Dry Weight Start Date: 06/18/24 Status: Ordered Medication Dispense Status: Completed Quantity: 90.0 Unit: tablet Total Allowed Fills: 2 Fills Dispensed: 0 Mental Status Mental Status Assessment Assessment Assessment Component Result Effecti ve Date [place] coma score total 15 Problem List Condition Confirmation Course Effective Dates Status H ealth Status Informant Adrenal adenoma bilteral Confirmed Active Anxiety Confirmed 2005 Active BPV (benign positional vertigo) Confirmed Active H/O Benzodiazepine overdose Confirmed Active Overactive bladder Confirmed Active Chronic low back pain, s/p interbody fusion of L4-L5. Confirmed Active COVID-19 1 Confirmed 05/14/24 Active Excessive daytime sleepiness Confirmed Active Rectus diastasis Confirmed Active Endometriosis Confirmed Active Fibromyalgia Confirmed Active GERD (gastroesophageal reflux disease) Confirmed Active H/O arteriovenous malformation (AVM) Confirmed Active Hiatal hernia Confirmed Active History of breast augmentation Confirmed Active Familial hyperlipidemia Confirmed Active PRANAY (obstructive sleep apnea) 2 Confirmed Active NSAID long-term use Confirmed Active Severe obesity Confirmed Active Severe recurrent major depression without psychotic features Confirmed Active Social phobia Confirmed Active Treatment-emergent central sleep apnea Confirmed Active Urge and stress incontinence Confirmed Active 1Problem added by Discern Expert 2Severe Results Radiology Reports * Exam Date Time Procedure Performing Provider Status 03/08/25 12:[address] Abd/Pelvis W/ IV Contrast Only Auth (Verified) Notes: (CT Abd/Pelvis W/ IV Contrast Only) Reason For Exam: LLQ abdominal pain;Other: RESULT: CT Abd/Pelvis W/ IV Contrast Only CT Abd/Pelvis W/ IV Contrast Only Hx of Present Illness: 1wk of watery diarrhea. Was seen at the ED last week, was DC and told to come back if worse. Started vomiting last night. Pt states pain was initially upper abd, now mid abd pain. Feels very nauseous. Poor PO intake this week; Reason: Other:; LLQ abdominal pain; Clinical Question(s): Diverticulitis; Order Comment: Patient unable to tolerate PO contrast. - TECHNIQUE: Spiral CT through the abdomen and pelvis with IV contrast formatted in 3 planes. 100 cc of Isovue 300 100cc vials was administered intravenously. This study was performed without oral contrast. Weight-based protocol using automatic tube modulation was used to optimize exposure parameters. CTDIvol Body: 26.22 mGy, DLP Body: 1332 mGy*cm. COMPARISON: CT abdomen and pelvis without contrast 04/20/2024. FINDINGS: Fiber Designer View Findings, Lines and Tubes: None. Visualized Chest: Lung bases are clear. No pleural effusion. The heart is normal in size. No pericardial effusion. Diaphragm: Normal. Liver: Normal morphology and attenuation. No suspicious lesion. Gallbladder: Absent consistent with prior cholecystectomy. Bile ducts: No biliary ductal dilation. Spleen: Normal. Pancreas: Normal. Adrenal glands: Unchanged nodular thickening of the adrenal glands bilaterally previously characterized as lipid rich adenomas. Kidneys and ureters: No hydronephrosis, stones, or suspicious masses. Bladder: Under distended and poorly evaluated. No definite inflammatory change. Reproductive organs: Status post hysterectomy. No suspicious adnexal lesion. Stomach, small bowel, and large bowel: Stomach, small bowel and large bowel are normal in caliber. No evidence of bowel obstruction. No acute inflammatory process of the bowel. Scattered colonic diverticula without diverticulitis. Appendix: Normal. Peritoneum and retroperitoneum: No ascites or pneumoperitoneum. No omental or mesenteric lesions. Lymph nodes: No enlarged lymph nodes. Surgical clips abutting the left common iliac artery. Blood vessels: Moderate atherosclerotic vascular calcification. No aortic aneurysm. No evidence of venous thrombosis. Abdominal and pelvic wall: Unremarkable. Bones: No acute abnormality. Anterior interbody fusion at L4-L5. IMPRESSION: 1. No acute process in the abdomen or pelvis. 2. Chronic incidental findings noted above WSN: [id number] Ordering Physician: Deng Estrella Dictated By: Royer John MD Dictated Date/Time: 03/08/25 1:26 pm Reviewed By: Royer John MD Signed By: Royer John MD Signed Date/Time: 03/08/25 1:26 pm Transcribed By: BERTRAND Transcribed Date/Time: 03/08/25 1:08 pm Vital Signs Most recent to oldest [Reference Range]: 1 2 3 Height 165 cm (03/08/25 1:13 PM) 165 cm (03/08/25 8:21 AM) Weight 112.1 kg (03/08/25 1:13 PM) 112.1 kg (03/08/25 8:21 AM) Oxygen Saturation [94-100 %] 98 % (03/08/25 3:27 PM) 100 % (03/08/25 1:13 PM) 98 % (03/08/25 8:21 AM) Pulse Rate [55-90 bpm] 90 bpm (03/08/25 3:27 PM) 92 bpm *H* (03/08/25 1:13 PM) 103 bpm *H* (03/08/25 8:21 AM) Body Mass Index [18.5-24.99 kg/m2] 41.18 kg/m2 *H* (03/08/25 1:13 PM) Blood Pressure [90-138/55-84 mm Hg] 140/83mm Hg *H* (03/08/25 3:27 PM) 131/54mm Hg (03/08/25 1:13 PM) 140/88mm Hg *H* (03/08/25 8:21 AM) Respiratory Rate [16-30 br/min] 16 br/min (03/08/25 1:13 PM) 16 br/min (03/08/25 8:21 AM) Temperature [96.8-100.4 DegF] 98.1 DegF (03/08/25 8:21 AM) Mode of Delivery (Oxygen) Room air (03/08/25 3:27 PM) Room air (03/08/25 1:13 PM) Room air (03/08/25 8:21 AM) Blood pressure sites Arm, left (03/08/25 3:27 PM) Arm, right (03/08/25 1:13 PM) Arm, left (03/08/25 8:21 AM) Temperature Route Oral (03/08/25 8:21 AM) Dry Weight 112.1 kg (03/08/25 1:13 PM) 112.1 kg (03/08/25 8:21 AM) Weight Obtained Via Standing scale (03/08/25 8:21 AM) Social History Social History Type Response Sexual Gender identity: Dominique ntifies as female. Preferred pronoun: She/her. Smoking Status 5-9 cigarettes (betw een 1/4 to 1/2 pack)/day in last 30 days;Former smoker, quit more than 30 days ago; Interested in cessation: Yes; Type: Cigarettes; Tobacco use times per day: 1 PPD; Number of years: 25; entered on: 10/20/24 Sex Sex Representation Female (finding) Status Not Social Determinants of Health Assessment Assessment Assessment Component Result Effecti ve Date Unspecifed Social Determinants of Health Assessment Have you or any fami ly members you live with been unable to get any of the following when it was really needed in past 1 year [PRAPARE] None 03/08/25 Has lack of transpor tation kept you from medical appointments, meetings, work, or from getting things needed for daily living No 03/08/25 How often do you see or talk to people that you care about and feel close to [PRAPARE] 3 to 5 times a week 03/08/25 Do you feel physical ly and emotionally safe where you currently live [PRAPARE] Yes 03/08/25 Within the last year , have you been afraid of your partner or ex-partner No 03/08/25 Housing status I have housing 03/08/25 Are you worried abou t losing your housing [PRAPARE] No 03/08/25 Patient Care team information Care Team Personnel Name: Haven Lovett RN Position: [facility] [place] Office Staff Member Role: Primary Care Nurse Name: Anahi Liriano RN Position: [facility] RN Member Role: Primary Care Nurse Name: Inocencio Walker RN Position: [facility] RN Member Role: Primary Care Nurse Name: Yulia Montgomery [place] Position: [facility] Office Staff Member Role: Primary Care Nurse Name: Frank Wheatley DO Position: [facility] DIRECTOR CUSTOM MD Member Role: Lifetime DIRECTOR CUSTOM Physician Address: [address] [place] [id number] Telecom: Name: Daniella Ybarra RN Position: [facility] RN Member Role: Primary Care Nurse Name: Tashia Bright RN Position: [facility] RN Member Role: Primary Care Nurse Name: Anette Lopes NP Position: [facility] PCO Associate Professional Member Role: PCP Address: [address] [place] [id number] Telecom: Name: Elinor Arshad RN Position: [facility] Outreach Member Role: Primary Care Nurse Care Team Related Persons Name: GALEN MORA Name: NONE, GIVEN Insurance Providers Guarantor name: ROJAS MORA [employer] Plan Information #: 1 Payer: [employer] [facility] Payer Identifier: NA Member Number: [id number] Group Number: NA Subscriber Identifier: [id number] Relationship to Subscriber: self Coverage Type: Managed Care (Private) Coverage Verification Date: NA Telecom: NA Address: [facility] Information #: 2 Payer: [employer] Payer Identifier: NA Member Number: [id number] Group Number: NA Subscriber Identifier: [id number] Relationship to Subscriber: self Coverage Type: MEDICAID Coverage Verification Date: Telecom: Address:
--- OUTSIDE RECORDS SUMMARY | 2025-03-09 23:59 | XMS_ITS | Continuity of Care Document ---
Author Organization [facility] [place] Address [address] [place] [address]- Care Team Providers Care Dump Attendant Name Role Phone Moses DIRECTOR OF ADVERTISING SALES, Anette Fernandes Primary Care Physician Encounter [facility] NBR [id number] Date(s): 02/07/25 - 03/09/25 [facility] [place] [address], [place] [address] Encounter Type: Triage Allergies, Adverse Reactions, Alerts Substance Criticality Severity Reaction Reaction Severity Status morphine Unable to assess criticality Persistent Severe Active Adhesive Bandage Act yang Latex Rash Active Immunizations Given and Recorded Vaccine Date Status Refusal Reason influenza virus vaccine, inactivated 12/28/23 John rded influenza virus vaccine, inactivated 02/05/23 John [...] Refills, Maintenance, 03/02/25 6:22:00 PM EST, Suspension, [facility], Partial fill upon patient [...] 1 Refills, Maintenance, 11/17/24 9:00:00 AM EDT, [facility], Partial fill upon patient [...] all supplies needed 99 MOS send to [facility], 11/09/21 8:42:00 AM EDT, Supply Start Date: 11/09/21 Status: Ordered Medication Dispense Status: Completed Quantity: 1.0 Unit: each Total Allowed Fills: 13 Fills Dispensed: 0 Diflucan 150 mg oral tablet 1 tablet = 150 mg, By Mouth, Once, # 1 tablet, 1 Refills, Soft Stop, 01/29/25 4:29:00 PM EDT, Tablet, [facility], Partial fill upon patient [...] 1 Refills, Maintenance, 01/19/25 3:43:00 PM EDT, [facility], Partial fill upon [...] EDT, 08/14/25 9:01:00 AM EDT, EC Capsule, [facility], disregard last script, [...] EDT, 02/15/25 9:01:00 AM EDT, EC Capsule, [facility], disregard last script, [...] 0 Refills, Maintenance, 03/02/25 6:22:00PM EST, Tablet, [facility], [...] Refills, Maintenance, 02/08/25 10:53:00 AM EDT, Solution, [facility], Partial fill [...] 3 Refills, Maintenance, 08/18/24 10:01:00 PM EDT, [facility], Partial fill [...] 1 Refills, Maintenance, 06/18/24 11:20:00AM EST, Tablet, [facility], Partial fill upon patient request if the prescription is for aschedule II opioid drug. Rx sent to [facility], 165, cm, 06/01/24 15:57:00 EST, Height, 109, kg,06/01/24 15:57:00 EST, Dry Weight Start Date: 06/18/24 Status: Ordered Medication Dispense Status: Completed Quantity: 90.0 Unit: tablet Total Allowed Fills: 2 Fills Dispensed: 0 Problem List Condition Confirmation Course Effective Dates [...] Active 1Problem added by Discern Expert 2Severe Social History Social History Type Response Sexual Gender identity: Dominique ntifies as female. Preferred pronoun: She/her. Smoking Status 5-9 cigarettes (betw een 1/4 to 1/2 pack)/day in last 30 days;Former smoker, quit more than 30 days ago; Interested in cessation: Yes; Type: Cigarettes; Tobacco use times per day: 1 PPD; Number of years: 25; entered on: 10/20/24 Sex Sex Representation Female (finding) Patient Care team information Care Team Personnel Name: Haven Lovett RN Position: [facility] Office Staff Member Role: Primary Care Nurse Name: Anahi Liriano RN Position: [facility] RN Member Role: Primary Care Nurse Name: Inocencio Walker RN Position: [facility] RN Member Role: Primary Care Nurse Name: Yulia Montgomery [place] Position: [facility] Office Staff Member Role: Primary Care Nurse Name: Frank Wheatley DO Position: [facility] APPLICATIONS ADMINISTRATOR MD Member Role: Lifetime APPLICATIONS ADMINISTRATOR Physician Address: [address] [place] [address] Telecom: Name: Daniella Ybarra RN Position: [facility] RN Member Role: Primary Care Nurse Name: Tashia Bright RN Position: [facility] RN Member Role: Primary Care Nurse Name: Anette Lopes NP Position: [facility] PCO Associate Professional Member Role: PCP Address: [address] [place] [address] Telecom: Name: Elinor Arshad RN Position: [facility] Outreach Member Role: Primary Care Nurse Care Team Related Persons Name: GALEN MORA Name: NONE, GIVEN Insurance Providers Guarantor name: ROJAS MORA Health Plan Information #: 1 Payer: [employer] PNRS Payer Identifier: NA Member Number: [id number] Group Number: NA Subscriber Identifier: NA Relationship to Subscriber: self Coverage Type: Managed Care (Private) Coverage Verification Date: NA Telecom: NA Address: NA Health Plan Information #: 2 Payer: [employer]ER [employer] Payer Identifier: REESE Member Number: [id number] Group Number: NA Subscriber Identifier: NA Relationship to Subscriber: self Coverage Type: MEDICAID Coverage Verification Date: REESE Telecom: REESE Address: NA
--- NOTE | ~2025-03-11 | FL_ITS ---
EXAMINATION: FL GUIDANCE ONLY HISTORY: M54.16 - Radiculopathy, lumbar region COMPARISON: None available. TECHNIQUE: Fluoroscopy time: 20 seconds. Cumulative Dose: 7.50 mGy. DAP: 647.60 mGycm2 Images: 5. FINDINGS: Fluoroscopic spot films of the lumbar spine demonstrate a needle and contrast material in the region of the right L5 pedicle. FL/FL guidance in treatment room IMPRESSION: Fluoroscopy during procedure. Please see procedure report for additional information. Electronically signed by: Carlos Manuel Felix MD 03/11/2025 03:09 PM LUPE RASHID
--- OUTSIDE RECORDS SUMMARY | 2025-03-11 06:28 | XMS_ITS | Encounter Summary ---
Author Organization [facility] [place] [facility] Address [address] [place] [address] Phone Care Team Providers Care Putty Mixer And Applier Name Role Phone Anette Lopes DIRECTOR PATIENT ACCOUNTING Primary Care Provider [phone]- [phone] Encounter Details Date Type Department Care Team (Late st Contact Info) Description 03/05/2025 Orders Only [facility] [place] [facility] [address] [place] [address] ProviderAnselmo MD [address] [place], [place] [id number] Social History Tobacco Use Types Packs/Day Years [...] not to disclose 2022 9:32 AM EDT documented as of this encounter Plan of Treatment Upcoming Encounters Date Type Department Care Team (Late st Contact Info) Description 04/06/2025 3:15 PM EST Office Visit [facility] [place] [facility] [address] [place] [address] Unknown, Unknown, Whit Bermudez PA-C [address] [address] [email or web address] Scheduled Procedures Name Priority Associated Diagnoses Date/Ti me ESOPHAGOGASTRODUODENOSCOPY Melena documented as of this encounter Procedures Procedure Name Priority Date/Time Associated Diagnosis Comments OUTSIDE LAB Routine 03/02/2025 8:10 AM EST documented in this encounter Results * Outside Lab (Non-MGB) (03/02/2025 8:10 AM EST) Historical Provider LAB BLOOD BKR ORDERABLES Final Result documented in this encounter Visit Diagnoses Not on filedocumented in this encounter Care Teams Putty Mixer And Applier Relationship Specialty Start Date End Date Anette Lopes NP [address] [place] [address] PCP - General Nurse Practitioner 08/15/22 documented as of this encounter Additional Source Comments The information contained in this document represents components of the legal health record. It is not the complete legal health record.[facility]
--- OUTSIDE RECORDS SUMMARY | 2025-03-11 06:28 | XMS_ITS | Encounter Summary ---
Author Organization [facility] Address [address] [facility] [address] [place] [address] Phone Care Team Providers Care Sales Project Engineer Name Role Phone Anette Lopes COLLAR BASTER Primary Care Provider +1- [phone] Reason for Visit * Reason Onset Date Comments Diarrhea 03/05/2025 Encounter Details Date Type Department Care Team (Late st Contact Info) Description 03/05/2025 Telephone [facility] [address] [place] [address] Beena Medina LPN 10 [place], [place] [id number] [email or web address] Diarrhea Social History Tobacco Use Types Packs/Day Years [...] AM EDT documented as of this encounter Progress Notes * Whit Epps PA-C - 03/08/2025 2:26 PM EST Reviewed with Beena, since she is having persistent pain and vomiting, recommend urgent EGD. * Debo Vila - 03/05/2025 1:52 PM EST Called and spoke with pt. She is taking pantoprazole which was prescribed by the ED * Whit Epps PA-C - 03/05/2025 12:33 PM EST [facility] notes reviewed; please have her check a fecal calprotectin, FIT, and GI pathogen panel and makesure she is taking the PPI. * Beena Medina LPN - 03/05/2025 7:41 AM EST Frieda calls to report she has been having watery,black stools approx 7x per day since 03/01/25.Shehas constant pain under her right breast which radiates to her back. She has had her gallbladder removed. She was seen in ED at - records in media. documented in this encounter Plan of Treatment Upcoming Encounters Date Type Department Care Team (Late st Contact Info) Description 04/06/2025 3:15 PM EST Office Visit [facility] [address] [place] [address] Unknown, Unknown, Whit Bermudez PA-C [address] [address] [email or web address] Scheduled Orders Name Type Priority Associated Diagnoses Orde r Schedule Calprotectin, Stool Lab Routine Diarrhea, unspecified type Expected: 03/05/2025, Expires: 03/05/2026 Fecal Immunochemical Test (FIT), x1 Lab Routine Melena Expected: 03/05/2025, Expires: 03/05/2026 Miscellaneous Lab Test Lab Routine Diarrhea, unspecified type Expected: 03/05/2025, Expires: 03/05/2026 Scheduled Procedures Name Priority Associated Diagnoses Date/Ti me ESOPHAGOGASTRODUODENOSCOPY Melena documented as of this encounter Visit Diagnoses Diagnosis Melena- Primary Blood in stool Diarrhea, unspecified type documented in this encounter Care Teams Sales Project Engineer Relationship Specialty Start Date End Date Anette Lopes NP [address] [place] [address] PCP - General Nurse Practitioner 08/15/22 documented as of this encounter Additional Source Comments The information contained in this document represents components of the legal health record. It is not the complete legal health record.[facility]
--- OUTSIDE RECORDS SUMMARY | 2025-03-11 06:28 | XMS_ITS | Patient Health Record ---
Author Organization [facility] Address [address] [facility] 4TH [place] [address] Care Team Providers Care Child Nutrition Assistant Name Role Phone Anette Lopes Primary Care Provider Jeff Newman M.D, M.P.H, Tamara Unavailable [phone] Allergies No Known Allergies Reason For Referral [...] Diagnosis [facility] [address] [facility] [address] [place] [address] 06/18/2024 Tamara Du Nasal congestion R09.81 and [...] Insured Coverage Start Date Coverage End Date [facility] [address] [place] [address] [id number] Frieda Dsouza Self - patient is the insured [facility] [address] [place] [address] [id number] Frieda Dsouza Self - patient is the insured Medical (General) History Medical History History ICD Code Patient Medical History Continued: High blood pressure,Sleep apnea cancer: Other Cancer, other: Bladder Surgical History: Removed tonsils or Amanda noids,Sinus surgery,Spine surgery
--- OUTSIDE RECORDS SUMMARY | 2025-03-11 06:29 | XMS_ITS | Clinical Summary ---
Author Organization [facility] Address [address] [place] [address] Phone Care Team Providers Care Career Services Director Name Role Phone Anette Lopes SCOURING MACHINE OPERATOR Primary Care Provider +1- [phone] Allergies Active Allergy Reactions Criticality Noted Date Comments Fluorouracil-Adhesive Bandage 2022 Latex Rash Low 12/11/2022 Medications No known medications Active Problems No known active problems Encounters Date Type Department Care Team Description 03/05/2025 Orders Only [facility] [address] [place] [address] Provider, MD Anselmo 03/05/2025 Telephone [facility] [address] [place] [address] Beena Medina LPN Diarrhea from Last 3 Months Immunizations Immunization Administration Dates Next Due COVID-19 [...] 12/11/2022 9:32 AM EDT Plan of Treatment Upcoming Encounters Date Type Department Care Team (Late st Contact Info) Description 04/06/2025 3:15 PM EST Office Visit [facility] [address] [place] [address] Unknown, Unknown, hWit Bermudez PA-C [address] [place] [address] [email or web address] Scheduled Procedures Name Priority Associated Diagnoses Date/Ti me ESOPHAGOGASTRODUODENOSCOPY Melena Health Maintenance Due Date Last Done Comments [...] 01/30/2022, 04/10/2018, Additional history exists COVID-19 VACCINE ( season) 2024 03/09/2021, 08/13/2020, 07/16/2020, Additional history exists Adult Td,Tdap Booster 11/17/2027 11/16/2017 RSV VACCINE (1 - 1-dose 75+ series) 2045 HEPATITIS A VACCINES Aged Out No long er eligible based on patient's age to complete this topic HIB VACCINES Aged Out No longer eligi ble based on patient's age to complete this topic IPV VACCINES Aged Out No longer eligi ble based on patient's age to complete this topic MENINGOCOCCAL VACCINES (ACWY) Aged Out No longer eligible based on patient's age to complete this topic MENINGOCOCCAL VACCINES (B) Aged Out N o longer eligible based on patient's age to complete this topic Medical Devices Not on file Procedures Procedure Name Priority Date/Time Associated Diagnosis Comments OUTSIDE LAB Routine 03/02/2025 8:10 AM EST from Last 3 Months Results * Outside Lab (Non-MGB) (03/02/2025 8:10 AM EST) us Historical Provider LAB BLOOD BKR ORDERABLES Final Result from Last 3 Months Insurance [place] [facility] [employer] [employer] [facility] Address: [facility] [address] [place] [id number] [place] [employer] FAMILY [facility] MEDICARE A [place] [id number] MEDICARE A [facility] [employer] MEDICARE A [facility] [employer] FAMILY [place] A [facility] [employer] [place]ILY [place] [id number] MEDICARE A [facility] [place] [id number] MEDICARE A [employer] EMPLOYEES FAMILY Advance Directives For more information, please contact: [phone] (9AM - 5PM [facility], Saturday-Saturday) Documents on File Type Date Recorded Patient Brick Paving Checker Expl anation Advance Directive - Non Epic LMR 03/29/2006 12:00 AM Care Teams Career Services Director Relationship Specialty Start Date End Date Anette Lopes NP [address] [place] [address] PCP - General Nurse Practitioner 08/15/22 Additional Source Comments The information contained in this document represents components of the legal health record. It is not the complete legal health record.[facility]
--- OUTSIDE RECORDS SUMMARY | 2025-03-11 06:29 | XMS_ITS | Data Portability ---
Author Organization [place] [facility], Allergy Address [address] [place] [phone] Care Team Providers Care Hands Assembler Name Role Phone TAMIKA VELASCO Referring Provider Assessment No assessment recorded. Plan of Treatment Reminders Order Date Submit Date Provider Last Modified By Organization Details Last Modified Time Details Appointments None record ed. Lab None record ed. Referral None record ed. Procedures None record ed. Surgeries None record ed. Imaging None record ed. Medication Orders None record ed. Patient TargetsNo targets recorded. Patient InstructionsNo instructions recorded. Reason for Referral None Reported. Problems Name Problem SNOMED Code Status Onset Date Resolution Date Notes Provider Name and Address Organization Details Recorded Time Nasal congestion 23863013 Active 024 DEVIKA Argueta MD [address] [place] [address], [phone], [facility] - 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 4 15:40:53 Problem Notes None recorded. Procedures Surgical History Date Name Laterality Status Provider Name and Address Organization Details Recorded Time 03/11/2024 NasalEndos copy_DP completed DEVIKA POLANCO MD [address] [place] [address], [phone], [facility] 03/11/2024 15:41:59 Imaging Results None recorded. Procedure Notes None recorded. Medical Equipment None Reported. Medications Name Sig Start Date Stop Date Status Note LastModified by Organization Details LastModified Time meloxicam 15 mg tablet active Not Available Not Available Not Available clonazepam 1 mg tablet active Not Available Not Available Not Available estradiol 1 mg tablet active Not Available Not Available Not Available propranolol 20 mg tablet active Not Available Not Available No t Available ondansetron 4 mg disintegrating tablet active Not Available Not Available Not Available oxycodone 5 mg tablet active Not Available Not Available Not Available ezetimibe 10 mg tablet active Not Available Not Available Not Available bupropion HCl XL 150 mg 24 hr tablet, extended release active Not Available Not Available Not Available duloxetine 30 mg capsule,delayed release active Not Available Not Available Not Available duloxetine 60 mg capsule,delayed release active Not Available Not Available Not Available Myrbetriq 50 mg tablet,extended release active Not Available Not Available Not Available Rexulti 1 mg tablet active Not Available Not Available Not Available Rexulti 0.5 mg tablet active Not Available Not Available Not Available Wegovy 2.4 mg/0.75 mL subcutaneous pen injector active Not Available Not Available Not Available Zepbound 10 mg/0.5 mL subcutaneous pen injector active Not Available Not Available Not Available Zepbound 15 mg/0.5 mL subcutaneous pen injector active Not Available Not Available Not Available Vitals Date Recorded Body height Body mass index (BMI) Body weight Provider Name and Address Organization Details Last Updated DateTime 03/11/2024 157.48 cm 40.2 kg/m2 96668.32 g Rambo [place] - [facility] 03/11/2024 15:30:56 Social History None recorded. Functional Status None recorded. Mental Status None recorded. Family History Nothing Reported. Medical History No medical history recorded. Gynecological HistoryNo gynecological history recorded. Obstetrics History GPAL:G 0 P 0 0 0 0 Past Encounters Encounter ID Performer Location Encounter Start Date Encounter Closed Date Diagnosis/Indication Diagnosis SNOMED-CT Code Diagnosis ICD10 Code Diagnosis IMO Codes Diagnosis Note [id number] DEVIKA POLANCO MD [facility] [address] [address] 03/11/2024 14:58:15 03/11/2024 15:41:21 Nasal congestion 48111717 R09.81 see below Disorder o f nasal cavity 832741213 J34.9 No polyps, masses or purulence on nasal endoscopy. I suspect she has some mucus trapping in her perforatio n. I suggested using a saline sinus rinse when she is symptomati c. Health Concerns Section Related Observation LastModified by Organization Detai ls LastModified Time None Recorded Concern Status LastModified by Organization Details LastModified Time None Recorded Advance Directives Directive None Recorded Payers Insurance Date Sequence Insurance Name Policy Number Policy Lott Covered Member ID Lott Member ID Guarantor Name 03/11/2024 2 [place] [facility] [place] Frieda Dsouza [id number] Frieda Dsouza 03/11/2024 1 [facility] [id number] Frieda Dsouza [id number] Frieda Dsouza Notes Date Note Type Note Provider Name and Address Organization Details Recorded Time 03/11/2024 text/html ROS as noted in the HPI She notes nasal blockage for over a year. She feels as if there is something stuck in the left side of her nose, such as mucus she can't clear. No sinus infections in the last year. She smokes occasionally. Denies seasonal allergies. Had surgery on her nasal turbinates in the past. Hx of pillar implants. DEVIKA POLANCO MD [address] [place] [address], [phone], [facility] - [facility] 03/11/2024 15:42:18 OBGyn Episode No OBEpisode recorded.
== END 2025-03-11 06:27 | disposition home or self-care (01) ==
LOC: CF 06:26
PROVIDERS: Visit Provider Internal Medicine
DX: M54.16 Radiculopathy, lumbar region (principal)
CPT/HCPCS: 64483; J1100; J2003; Q9967

== ENCOUNTER 2025-03-11 12:50 | Outpatient (AMB) | payer OTHER, MEDICAID, SELFPAY ==
[2025-03-11 13:12] VITALS: BP 122/70; PULSE 83; RESP 16; O2SAT 96
--- NOTE | 2025-03-11 13:12 | MHC.OFFVIS ---
Vital Signs 03/11/25 13:12 03/11/25 13:44 BP 122/70 128/76 Blood Pressure Location Lt brachial Lt radial Position Sitting Sitting Respiration 16 16 Pulse 83 81 Pulse Source Pulse Oximeter Pulse Oximeter Pulse Oximetry (%) 96 95 Oxygen Delivery Method Room Air Room Air Intake Visit Reasons: Right L5 TFESI Pony Worker Required: No Allergies Opioids - Morphine Analogues Allergy (Mild, Verified 03/11/25 13:13) Abdominal Pain Medication List - Last Reconciled 03/11/25 by Riya Pearl LPN brexpiprazole (Rexulti) 1 mg PO DAILY clonazepam (Klonopin) 1 mg PO BEDTIME duloxetine (Cymbalta) 90 mg PO DAILY gabapentin 600 mg PO BID semaglutide (weight loss) (Wegovy) mg subcut tramadol 50 mg PO BID PRN HPI HPI Right L5 TFESI: Details: Patient presents for scheduled procedure. Denies any recent cough, cold, infection, fever or other significant changes in medical history since last office visit. [facility] Medical History (Updated 03/03/25 @ 15:49 by Mita Gill, WELDER BOILERMAKER, SECURITY INFRASTRUCTURE ENGINEER) FH: cholecystectomy Spinal cord stimulator status 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 Social phobia PRANAY (obstructive sleep apnea) Hiatal hernia GERD (gastroesophageal reflux disease) Fibromyalgia Endometriosis BPV (benign positional vertigo) Benzodiazepine overdose Adrenal adenoma Anxiety Depression Memory loss Overweight Vertebrogenic low back pain Surgical History (Updated 11/20/24 @ 12:01 by Jaleesa Rodriguez) Hx of breast implants, bilateral History of tonsillectomy Social History Are you a primary animal caregiver to a significant other at home: No Do you presently have visiting nurse or other home services: No Patient Tobacco Use Status: Current everyday Tobacco user Tobacco use type: Smokeless Tobacco Physical Exam Vital Signs: Last Vital Signs Pulse 81 03/11/25 13:44 Resp 16 03/11/25 13:44 BP 128/76 03/11/25 13:44 Pulse Ox 95 03/11/25 13:44 Oxygen Delivery Method Room Air 03/11/25 13:44 Office Procedures Details: Transforaminal epidural steroid injection, Right L5 After obtaining written consent, pre-procedure blood pressure and heart rate were stable and recorded in the nursing record. The patient was placed in the prone position on the fluoroscopy table. The lumbosacral area was prepped with chloraprep, allowed to dry and draped in sterile fashion. Using fluoroscopy, the skin overlying our target was anesthetized with 0.5% lidocaine. A 22 gauge 3.5 inch spinal needle was advanced to the safe triangle in the upper pole of the right L5 foramen. No paresthesias were elicited with needle placement and aspiration was negative for blood and CSF. Correct needle position was confirmed with approximately 1 ml contrast dye (Omnipaque 180 mg/ml) injected under real-time fluoroscopy. No evidence of vascular or intrathecal uptake was seen and there was both epidural and peripheral spread of the contrast agent. 10 mg dexamethasone plus 1 ml containing 0.5% lidocaine was slowly injected. The needle was flushed and removed. the same procedure was repeated for the remaining levels. The skin was cleansed and a sterile bandages were applied. The patient tolerated the procedure well and no complications were encountered. Following the procedure the patient's vital signs were stable. The patient was discharged home in good condition with post-procedural instructions. Time Out: Immediately prior to the procedure, the following was verbally confirmed that there is a signed consent form and that the correct patient, planned procedure, site and side are consistent with documentation and that necessary equipment and/or blood products are available prior to the start of the case. Complications: none EBL: <5 cc 06070 - Lumbar/Sacral Procedure code (CPT) selection complete Assessment & Plan Assessment & Plan (1) Lumbar radiculopathy: Code(s): M54.16 - Radiculopathy, lumbar region Category: Medical Plan Patient is status post right L5 TFESI. Patient tolerated procedure well and was discharged home in stable condition with discharge instructions. All questions were answered. We will follow-up via telephone or in clinic to assess response to therapy. A follow-up appointment was made during today's visit. Orders: Orders FL guidance in treatment room 03/11/25 Mita Gill APRN, BENITEZ M54.16 - Radiculopathy, lumbar region AMB Transforaminal Epidural Steroid Injection 03/11/25 Ángel Benitez MD M54.16 - Radiculopathy, lumbar region Medications: New suzetrigine 50 mg PO DAILY 30 tabs 0RF Mita Gill APRN, BENITEZ Coding Level of Care Code Procedure Only Diagnoses Lumbar radiculopathy M54.16 CPT Codes Transforaminal Epidural Steroid Inj - TESI 3: 03297 - Lumbar/Sacral ([id number])
[2025-03-11 13:44] VITALS: BP 128/76; PULSE 81; RESP 16; O2SAT 95
--- OUTSIDE RECORDS SUMMARY | 2025-03-11 18:31 | XMS_ITS | Patient Health Record ---
Author Organization [facility] Address [address] [facility] 4TH [place] [address] Care Team Providers Care Clinical Dental Technician Name Role Phone Anette Lopes Primary Care [...] [facility] [address] [facility] [address] [place] [address] 06/18/2024 Tamara Du Nasal congestion R09.81 and [...] Insured Coverage Start Date Coverage End Date [facility] [address] [place] [phone] [id number] Frieda Dsouza Self - patient is the insured [facility] [address] [place] [address] [id number] Frieda Dsouza Self - patient is the insured Medical (General) History Medical History History ICD Code Patient Medical History Continued: High blood pressure,Sleep apnea cancer: Other Cancer, other: Bladder Surgical History: Removed tonsils or Amanda noids,Sinus surgery,Spine surgery
== END 2025-03-11 13:45 | disposition home or self-care (01) ==
LOC: HO.PMCPRC 12:50
PROVIDERS: PCP Nurse Practitioner Adult Health; Visit Provider Internal Medicine
DX: M54.16 Radiculopathy, lumbar region (principal)
CPT/HCPCS: 64483